=== PATIENT | male | born 1990 | race Caucasian/White ===

== ENCOUNTER 2019-08-29 14:46 | Emergency (ER) | payer OTHER, SELFPAY ==
[2019-08-29 14:53] VITALS: BP 147/84; PULSE 66; RESP 18; TEMP 36.7; O2SAT 99; BMI 22.4
[2019-08-29 15:10] VITALS: BP 131/68; PULSE 70; RESP 16; O2SAT 99
--- NOTE | 2019-08-29 15:17 | ED_ITS ---
HPI - Male Genitourinary <Samantha Rodas PA-C - Last Filed: 08/29/19 20:37> General Chief complaint: Urogenital-Male Stated complaint: states bacterial infection, not getting better Time Seen by Provider: 08/29/19 15:12 Source: patient Mode of arrival: Ambulatory Limitations: no limitations History of Present Illness HPI Narrative: This 29-year-old male comes to ED secondary to intermittent urinary symptoms for the last 2 weeks, along with new testicular pain. He states that 2 weeks ago, he did a tough fitness test for the [employer]. Several hours later he developed general malaise, then fever up to 102/103 range with chills. Two days after that he began to have urinary symptoms with burning and cloudy, tea-colored urine along with bilateral flank pain. He was evaluated at that time including lab work, states rhabdomyolysis was wheeled out, he was diagnosed with kidney infection and started on Cipro. He states within 12-24 hours he was markedly better, finished the 7 day course of Cipro. 4-5 days ago he began to have recurrent urinary burning with some slight frequency and notice sediment in his urine. He was seen again on Sunday and started Cipro again. With this episode, he has not had any recurrent fever or flank pain. He has never had any nausea or vomiting with either episode, however yesterday he began to have generalized testicular pain which has worsened today. He is also had some chills since then, did not take his temperature is at home. There was some concern that he might have epididymitis. He denies rectal pain. He denies hematuria. He denies STD concerns or penile discharge. He denies any trauma. He denies any abdominal pain, other recent illness or new symptoms on systems review. He has had 2 urine cultures done, last 1 was done Sunday is not back yet. He has brought some lab results from his 1st visit on the as well as has the 1st culture result which showed E coli however there is no sensitivity. He does not have any results from lab tests that were done this morning. Related Data Home Medications Medication Instructions Recorded Confirmed acetaminophen [Tylenol Extra 1,000 mg PO PRN PRN 08/29/19 08/29/19 Strength] ciprofloxacin HCl 500 mg PO BID 08/29/19 08/29/19 ibuprofen 800 mg PO TID 08/29/19 08/29/19 Previous Rx's Medication Instructions Recorded hydrocodone-acetaminophen [Monaca] 1 tab PO Q4-6H PRN #8 tab 08/29/19 Review of Systems <Samantha Rodas PA-C - Last Filed: 08/29/19 20:37> Review of Systems ROS Unobtainable: All systems reviewed & are unremarkable except as noted in HPI and below Patient History <Samantha Rodas PA-C - Last Filed: 08/29/19 20:37> Medical History (Updated 08/29/19 @ 18:57 by Samantha Rodas PA-C) Healthy adult male (Chronic) Surgical History (Updated 08/29/19 @ 16:15 by Samantha Rodas PA-C) S/P tonsillectomy (Chronic) Status post advanced surface ablation photorefractive keratectomy (PRK) (Chronic) Social History Smoking Status: Never smoker Smoking Status: Never smoker Exam <Samantha Rodas PA-C - Last Filed: 08/29/19 20:37> Narrative Exam Narrative: GENERAL APPEARANCE: Patient sitting comfortably, in no distress. HEENT: PERRL, EOMI, normal oropharynx NECK: Supple LUNGS: Clear to auscultation bilaterally. HEART: Rate and rhythm regular, normal S1 and S2, no S3 or S4. ABDOMEN: Soft, nontender, nondistended, bowel sounds present x 4 quadrants, no masses palpable, no CVAT EXTREMITIES: No edema, no cyanosis DERMATOLOGIC: No jaundice or exanthem NEUROLOGIC: Alert and oriented with normal speech and coordination : No penile discharge, no lesions, testes are tender bilaterally, no edema, R. is slightly higher riding and epididymis a bit ore prominent than L Initial Vital Signs Initial Vital Signs: Vital Signs Temperature 98.1 F 08/29/19 14:53 Pulse Rate 66 08/29/19 14:53 Respiratory Rate 18 08/29/19 14:53 Blood Pressure 147/84 H 08/29/19 14:53 Pulse Oximetry 99 08/29/19 14:53 <Estefani Cantu MD - Last Filed: 08/31/19 07:37> Initial Vital Signs Initial Vital Signs: Vital Signs Temperature 98.1 F 08/29/19 14:53 Pulse Rate 66 08/29/19 14:53 Respiratory Rate 18 08/29/19 14:53 Blood Pressure 147/84 H 08/29/19 14:53 Pulse Oximetry 99 08/29/19 14:53 Course <Samantha Rodas PA-C - Last Filed: 08/29/19 20:37> Course Additional Information: Patient does not have any acute findings on urinalysis today however he has been on antibiotics for the last couple of days. No new findings on lab work. He does not have fever. He does appear to have a mild case of epididymitis, gonorrhea and chlamydia negative. We were able to obtain his urine culture from 08/12 which grew E coli but there was no sensitivity. His urine culture from 08/26 is still pending, and we have 1 pending here as well. Since he just restarted Cipro on Sunday, will have him continue this while awaiting cultures. He will restart ibuprofen, and was given a prescription for a little bit of Monaca over the weekend if needed. Advised return to ED if any acutely worsening symptoms, [place] should be back by then. Advised we will call from the ED if therapy changes needed based on culture here, and he is agreeable with these plans. Findings and plan reviewed with attending Dr. Cantu who is in agreement Orders Ordered: ED Orders 08/29/19 15:15 Urinalysis and Microscopic Stat Urine Chlamydia Gonorrhea PCR Stat Urine Culture Stat 08/29/19 15:56 US scrotum Stat 08/29/19 16:10 Complete Blood Count AUTO DIFF Stat Comprehensive Metabolic Panel Stat Vital Signs Vital signs: Vital Signs - 8 hr 08/29/19 14:53 08/29/19 15:10 08/29/19 17:30 Temperature 98.1 F Pulse Rate 66 70 60 Respiratory Rate 18 16 18 Blood Pressure 147/84 H Blood Pressure [Left Arm] 131/68 111/65 Pulse Oximetry 99 99 100 08/29/19 19:17 Temperature Pulse Rate 60 Respiratory Rate 16 Blood Pressure Blood Pressure [Left Arm] 117/73 Pulse Oximetry 99 <Estefani Cantu MD - Last Filed: 08/31/19 07:37> Orders Ordered: ED Orders 08/29/19 15:15 Urinalysis and Microscopic Stat Urine Chlamydia Gonorrhea PCR Stat Urine Culture Stat 08/29/19 15:56 US scrotum Stat 08/29/19 16:10 Complete Blood Count AUTO DIFF Stat Comprehensive Metabolic Panel Stat Vital Signs Vital signs: Vital Signs - 8 hr 08/29/19 14:53 08/29/19 15:10 08/29/19 17:30 Temperature 98.1 F Pulse Rate 66 70 60 Respiratory Rate 18 16 18 Blood Pressure 147/84 H Blood Pressure [Left Arm] 131/68 111/65 Pulse Oximetry 99 99 100 08/29/19 19:17 Temperature Pulse Rate 60 Respiratory Rate 16 Blood Pressure Blood Pressure [Left Arm] 117/73 Pulse Oximetry 99 MDM - Male Genitourinary <Samantha Rodas PA-C - Last Filed: 08/29/19 20:37> Lab Data Attestation: I reviewed the patient's lab results. Result diagrams: 08/29/19 16:10 08/29/19 16:10 Labs: Lab Results 08/29/19 08/29/19 08/29/19 Range/Units 15:15 15:15 16:10 WBC 4.6 (4.5-11.0) X10^3/uL RBC 4.78 (4.5-5.9) X10^6/uL Hgb 14.5 (13.5-17.5) g/dL Hct 43.2 (41-53) % MCV 90.3 (80-100) fL MCH 30.3 (26-34) PG MCHC 33.6 (30-36) % RDW 13.1 (11.6-14.8) % Plt Count 334 (150-400) X10^3/uL Neut % (Auto) 45.3 L (50-75) % Lymph % (Auto) 44.1 H (25-40) % [place] % (Auto) 8.4 (3-14) % Eos % (Auto) 1.6 L (2-4) % Baso % (Auto) 0.6 (0-2) % Neut # (Auto) 2100 (1682-7960) /uL Lymph # (Auto) 2000 (7539-3427) /uL [place] # (Auto) 400 (0-900) /uL Eos # (Auto) 100 (0-450) /uL Baso # (Auto) 0 (0-100) /uL Sodium (137-145) mmol/L Potassium (3.4-5.1) mmol/L Chloride (98-107) mmol/L Carbon Dioxide (22-32) mmol/L BUN (9-20) mg/dL Creatinine (0.66-1.25) mg/dL Estimated GFR (>60) mL/min BUN/Creatinine Ratio (6-22) Glucose (70-100) mg/dL Calcium (8.4-10.2) mg/dL Total Bilirubin (0.2-1.3) mg/dL AST (17-59) IU/L ALT (<50) IU/L Alkaline Phosphatase (38-126) U/L Total Protein (6.3-8.2) g/dL Albumin (3.5-5.0) g/dL Globulin (1.7-4.1) g/dL Albumin/Globulin Ratio (1.0-2.8) Urine Color Yellow Urine Appearance Clear Urine pH 6.5 (4.5-8.0) Ur Specific [place] <=1.005 (1.000-1.035) Urine Protein Negative (Negative) Urine Glucose (UA) Negative (Negative) g/dL Urine Ketones Negative (NEGATIVE) Urine Occult Blood Negative (Negative) Urine Nitrate Negative (Negative) Urine Bilirubin Negative (NEGATIVE) Urine Urobilinogen 0.2 (0.2) E.U./dL Ur Leukocyte Esterase Negative (NEGATIVE) Urine RBC None seen (0-5/HPF) Urine WBC 1-5/hpf (0-5/HPF) Urine Bacteria None seen (None) Ur Culture Indicated? Cult not indicated Ur Chlamydia DNA (PCR) Not detected N gonorrhoeae DNA (PCR) Not detected 08/29/19 Range/Units 16:10 WBC (4.5-11.0) X10^3/uL RBC (4.5-5.9) X10^6/uL Hgb (13.5-17.5) g/dL Hct (41-53) % MCV (80-100) fL MCH (26-34) PG MCHC (30-36) % RDW (11.6-14.8) % Plt Count (150-400) X10^3/uL Neut % (Auto) (50-75) % Lymph % (Auto) (25-40) % [place] % (Auto) (3-14) % Eos % (Auto) (2-4) % Baso % (Auto) (0-2) % Neut # (Auto) (9825-2974) /uL Lymph # (Auto) (4707-2072) /uL [place] # (Auto) (0-900) /uL Eos # (Auto) (0-450) /uL Baso # (Auto) (0-100) /uL Sodium 138 (137-145) mmol/L Potassium 4.2 (3.4-5.1) mmol/L Chloride 103 (98-107) mmol/L Carbon Dioxide 30 (22-32) mmol/L BUN 14 (9-20) mg/dL Creatinine 1.00 (0.66-1.25) mg/dL Estimated GFR > 60.0 (>60) mL/min BUN/Creatinine Ratio 14.0 (6-22) Glucose 91 (70-100) mg/dL Calcium 9.3 (8.4-10.2) mg/dL Total Bilirubin 0.5 (0.2-1.3) mg/dL AST 20 (17-59) IU/L ALT 12 (<50) IU/L Alkaline Phosphatase 36 L (38-126) U/L Total Protein 6.7 (6.3-8.2) g/dL Albumin 4.2 (3.5-5.0) g/dL Globulin 2.5 (1.7-4.1) g/dL Albumin/Globulin Ratio 1.7 (1.0-2.8) Urine Color Urine Appearance Urine pH (4.5-8.0) Ur Specific [place] (1.000-1.035) Urine Protein (Negative) Urine Glucose (UA) (Negative) g/dL Urine Ketones (NEGATIVE) Urine Occult Blood (Negative) Urine Nitrate (Negative) Urine Bilirubin (NEGATIVE) Urine Urobilinogen (0.2) E.U./dL Ur Leukocyte Esterase (NEGATIVE) Urine RBC (0-5/HPF) Urine WBC (0-5/HPF) Urine Bacteria (None) Ur Culture Indicated? Ur Chlamydia DNA (PCR) N gonorrhoeae DNA (PCR) Outside labs from 08/12: Sodium 139, potassium 4.6, chloride 102, CO2 32, anion gap 5, osmolality 268 (normal 265-285), BUN 13, creatinine 0.9, glucose 86, calcium 9.5, protein 7.6, albumin 4.0, bilirubin 0.32, direct bilirubin 0.09, al k phos 51, ALT 21, AST 10, CK 61, myoglobin 2, UA: Clear yellow, pH 6.5, specific gravity 1.005, glucose negative, ketones negative, blood negative, protein negative, bilirubin negative, urobilinogen less than 2, nitrite negative, leuk [place] moderate, urine WBC 4-10, urine RBC 0 -3, urine bacteria rare, urine squamous 0-3, culture E coli, no sensitivity <Estefani Cantu MD - Last Filed: 08/31/19 07:37> Lab Data Labs: Lab Results 08/29/19 08/29/19 08/29/19 Range/Units 15:15 15:15 16:10 WBC 4.6 (4.5-11.0) X10^3/uL RBC 4.78 (4.5-5.9) X10^6/uL Hgb 14.5 (13.5-17.5) g/dL Hct 43.2 (41-53) % MCV 90.3 (80-100) fL MCH 30.3 (26-34) PG MCHC 33.6 (30-36) % RDW 13.1 (11.6-14.8) % Plt Count 334 (150-400) X10^3/uL Neut % (Auto) 45.3 L (50-75) % Lymph % (Auto) 44.1 H (25-40) % [place] % (Auto) 8.4 (3-14) % Eos % (Auto) 1.6 L (2-4) % Baso % (Auto) 0.6 (0-2) % Neut # (Auto) 2100 (0764-7264) /uL Lymph # (Auto) 2000 (5959-5184) /uL [place] # (Auto) 400 (0-900) /uL Eos # (Auto) 100 (0-450) /uL Baso # (Auto) 0 (0-100) /uL Sodium (137-145) mmol/L Potassium (3.4-5.1) mmol/L Chloride (98-107) mmol/L Carbon Dioxide (22-32) mmol/L BUN (9-20) mg/dL Creatinine (0.66-1.25) mg/dL Estimated GFR (>60) mL/min BUN/Creatinine Ratio (6-22) Glucose (70-100) mg/dL Calcium (8.4-10.2) mg/dL Total Bilirubin (0.2-1.3) mg/dL AST (17-59) IU/L ALT (<50) IU/L Alkaline Phosphatase (38-126) U/L Total Protein (6.3-8.2) g/dL Albumin (3.5-5.0) g/dL Globulin (1.7-4.1) g/dL Albumin/Globulin Ratio (1.0-2.8) Urine Color Yellow Urine Appearance Clear Urine pH 6.5 (4.5-8.0) Ur Specific [place] <=1.005 (1.000-1.035) Urine Protein Negative (Negative) Urine Glucose (UA) Negative (Negative) g/dL Urine Ketones Negative (NEGATIVE) Urine Occult Blood Negative (Negative) Urine Nitrate Negative (Negative) Urine Bilirubin Negative (NEGATIVE) Urine Urobilinogen 0.2 (0.2) E.U./dL Ur Leukocyte Esterase Negative (NEGATIVE) Urine RBC None seen (0-5/HPF) Urine WBC 1-5/hpf (0-5/HPF) Urine Bacteria None seen (None) Ur Culture Indicated? Cult not indicated Ur Chlamydia DNA (PCR) Not detected N gonorrhoeae DNA (PCR) Not detected 08/29/19 Range/Units 16:10 WBC (4.5-11.0) X10^3/uL RBC (4.5-5.9) X10^6/uL Hgb (13.5-17.5) g/dL Hct (41-53) % MCV (80-100) fL MCH (26-34) PG MCHC (30-36) % RDW (11.6-14.8) % Plt Count (150-400) X10^3/uL Neut % (Auto) (50-75) % Lymph % (Auto) (25-40) % [place] % (Auto) (3-14) % Eos % (Auto) (2-4) % Baso % (Auto) (0-2) % Neut # (Auto) (5462-6603) /uL Lymph # (Auto) (7783-7149) /uL [place] # (Auto) (0-900) /uL Eos # (Auto) (0-450) /uL Baso # (Auto) (0-100) /uL Sodium 138 (137-145) mmol/L Potassium 4.2 (3.4-5.1) mmol/L Chloride 103 (98-107) mmol/L Carbon Dioxide 30 (22-32) mmol/L BUN 14 (9-20) mg/dL Creatinine 1.00 (0.66-1.25) mg/dL Estimated GFR > 60.0 (>60) mL/min BUN/Creatinine Ratio 14.0 (6-22) Glucose 91 (70-100) mg/dL Calcium 9.3 (8.4-10.2) mg/dL Total Bilirubin 0.5 (0.2-1.3) mg/dL AST 20 (17-59) IU/L ALT 12 (<50) IU/L Alkaline Phosphatase 36 L (38-126) U/L Total Protein 6.7 (6.3-8.2) g/dL Albumin 4.2 (3.5-5.0) g/dL Globulin 2.5 (1.7-4.1) g/dL Albumin/Globulin Ratio 1.7 (1.0-2.8) Urine Color Urine Appearance Urine pH (4.5-8.0) Ur Specific [place] (1.000-1.035) Urine Protein (Negative) Urine Glucose (UA) (Negative) g/dL Urine Ketones (NEGATIVE) Urine Occult Blood (Negative) Urine Nitrate (Negative) Urine Bilirubin (NEGATIVE) Urine Urobilinogen (0.2) E.U./dL Ur Leukocyte Esterase (NEGATIVE) Urine RBC (0-5/HPF) Urine WBC (0-5/HPF) Urine Bacteria (None) Ur Culture Indicated? Ur Chlamydia DNA (PCR) N gonorrhoeae DNA (PCR) Discharge Plan Departure Patient Disposition: Home Clinical Impression: Epididymitis, Acute UTI Discharge Date/Time: 08/29/19 19:25 Instructions: DI for Epididymitis, DI for Urinary Tract Infection (UTI) Activity Restrictions/Additional Instructions: As we talked about, you should return to ED over the weekend if you develop any acutely worsening symptoms, or new symptoms such as persistent vomiting or fever. Please continue taking the Cipro, and ibuprofen 800 mg every 8 hours. I have also prescribed a little bit of pain medicine for you like you had after your eye surgery. Remember that this can make you sleepy and not to drive, but you can take it if you needed. Elevate your scrotum for comfort. [place] and determine whether any changes in treatment or other evaluation are needed. Prescriptions: New hydrocodone-acetaminophen [Monaca] 5-325 mg tablet 1 tab PO Q4-6H PRN (Reason: Acute epididymitis pain) Qty: 8 RF: 0 No Action ibuprofen 800 mg Tablet 800 mg PO TID RF: 0 ciprofloxacin HCl 500 mg Tablet 500 mg PO BID RF: 0 acetaminophen [Tylenol Extra Strength] 500 mg Tablet 1,000 mg PO PRN PRN (Reason: pain) RF: 0 Referrals: [facility] [Provider Group]
[2019-08-29 15:20] LABS: Bacteria Urine None Seen; RBC Urine None Seen (0-5/HPF)
[2019-08-29 15:22] LABS: Appearance Urine UA CLEAR; Bilirubin Urine UA NEGATIVE (NEGATIVE); Color Urine UA YELLOW; Glucose Urine UA NEGATIVE (Negative); Ketones Urine UA NEGATIVE (NEGATIVE); Leukocyte Esterase Urine UA NEGATIVE (NEGATIVE); Nitrite Urine UA NEGATIVE (Negative); Occult Blood Urine UA NEGATIVE (Negative); Protein Urine UA NEGATIVE (Negative); Specific Gravity Urine UA <=1.005 (1.000-1.035); Urobilinogen Urine UA 0.2 E.U./dL (0.2); pH Urine UA 6.5 (4.5-8.0)
[2019-08-29 15:36] LABS: Culture Indicated Urine Cult Not Indicated; WBC Urine 1-5/HPF (0-5/HPF)
--- NOTE | 2019-08-29 15:56 | DI.US.S_ITS ---
PROCEDURE: US SCROTUM INDICATIONS: PAIN, URINARY SX TECHNIQUE: Real-time scanning was performed of the scrotum and testicles, with image documentation. Color and pulse Doppler interrogation was performed of both testicles. COMPARISON: None. FINDINGS: Right: Testicle is normal in size at 3.9 x 2.6 x 1.9 cm, and homogenous in echotexture. Epididymis is normal in overall size and morphology. No hydrocele or varicoceles. Overlying scrotal skin is normal in thickness. Left: Testicle is normal in size at 4.1 x 2.1 x 2.3 cm, and homogeneous in echotexture. Epididymis is slightly increased in size with increased vascular flow. No hydrocele or varicoceles. Overlying scrotal skin is normal in thickness. Doppler: Color and pulse Doppler demonstrate normal and symmetric arterial flow in both testicles. IMPRESSION: 1. Left epididymis slightly increased in size with hypernatremia concern for epididymitis. 2. No evidence of testicular torsion. Please note ultrasound cannot exclude intermittent testicular torsion Dictated by: Ronit Merchant MD, PhD on 08/29/2019 at 18:39 Approved by: Ronit Merchnat MD, PhD on 08/29/2019 at 18:41
[2019-08-29 16:20] LABS: Add Manual Diff / Slide Review NO; Basophils Absolute Auto 0 /uL (0-100); Basophils Percent Auto 0.6 % (0-2); Eosinophils Absolute Auto 100 /uL (0-450); Eosinophils Percent Auto 1.6 % (2-4); Hematocrit 43.2 % (41-53); Hemoglobin 14.5 g/dL (13.5-17.5); Lymphocytes Absolute Auto 2000 /uL (1100-4500); Lymphocytes Percent Auto 44.1 % (25-40); Mean Corpuscular HGB Conc 33.6 % (30-36); Mean Corpuscular Hemoglobin 30.3 PG (26-34); Mean Corpuscular Volume 90.3 fL (80-100); Monocytes Absolute Auto 400 /uL (0-900); Monocytes Percent Auto 8.4 % (3-14); Neutrophils Absolute Auto 2100 /uL (1500-7000); Neutrophils Percent Auto 45.3 % (50-75); Platelet Count 334 X10^3/uL (150-400); Red Blood Cell Count 4.78 X10^6/uL (4.5-5.9); Red Cell Distribution Width 13.1 % (11.6-14.8); White Blood Cell Count 4.6 X10^3/uL (4.5-11.0)
[2019-08-29 16:30] LABS: Alanine Aminotransferase 12 IU/L (<50); Albumin 4.2 g/dL (3.5-5.0); Albumin Globulin Ratio 1.7 (1.0-2.8); Alkaline Phosphatase 36 U/L (38-126); Aspartate Aminotransferase 20 IU/L (17-59); Bilirubin Total 0.5 mg/dL (0.2-1.3); Blood Urea Nitrogen 14 mg/dL (9-20); Calcium 9.3 mg/dL (8.4-10.2); Carbon Dioxide 30 mmol/L (22-32); Chloride 103 mmol/L (98-107); Estimated Glomerular Filt Rate > 60.0 mL/min (>60); Globulin 2.5 g/dL (1.7-4.1); Glucose 91 mg/dL (70-100); HEMOLYSIS < 15 (0-50); Potassium 4.2 mmol/L (3.4-5.1); Sodium 138 mmol/L (137-145); Total Protein 6.7 g/dL (6.3-8.2)
[2019-08-29 16:49] LABS: Urine N gonorrhoeae NOT DETECTED
[2019-08-29 16:53] LABS: Urine Chlamydia NOT DETECTED
[2019-08-29 17:30] VITALS: BP 111/65; PULSE 60; RESP 18; O2SAT 100
[2019-08-29 19:17] VITALS: BP 117/73; PULSE 60; RESP 16; O2SAT 99
== END 2019-08-29 19:25 | disposition home or self-care (01) ==
PROVIDERS: Emergency Provider Internal Medicine
DX: N45.1 Epididymitis (principal); N39.0 Urinary tract infection, site not specified
CPT/HCPCS: 36415; 76870; 80053; 81001; 85025; 87086; 87491; 87591; 99283; 99284

== ENCOUNTER → 2020-11-19 10:59 | Outpatient (CLI) | payer OTHER, SELFPAY ==
[2020-11-19 12:27] LABS: Liquefaction Semen YES (YES); Sperm Count 1 x10^6/mL (20-150); Sperm Morphology 43 %ABNORM (0-30); Sperm Motility 50% % Motile
== END ==
PROVIDERS: PCP Student in an Organized Health Care Education/Training Program; Referring Provider Specialist; Visit Provider Specialist
DX: I86.1 Scrotal varices (principal)
CPT/HCPCS: 89320